=== PATIENT | male | born 1945 | race Caucasian/White ===

== ENCOUNTER → 2021-06-06 | Outpatient (CLI) | payer MEDICARE, BC ==
[~2021-06-06] MED LIST: ACETAMINOPHEN650 M5 PO; ASMANEX220 MC1 INH; ASPIR 8181 MG PO; ASPIRIN325 PO; ATORVASTATIN CA40 MG PO; AZELASTINE HCL6 ML; CARVEDILOL3.125 MG PO; CLOPIDOGREL; CRESTOR10 MG PO; DUREZOL5 ML; EFFIENT10 MG PO; FISH OIL + VIT1 EACH PO; FLONASE 0.05%50 MCG NASAL; FLOVENT HFA 1110 MCG INH; HYDROCHLOROTH12.5 MG PO; HYDROCHLOROTHIA25 M2 PO; LEVOTHYROXIN0.125 M1 PO; MOTION RELIEF25 MG PO; MUCINEX22 ML; MULTI-VITAMIN1 EAC5 PO; NASAL MIST126 ML; NITROSTAT0.4 MG SL; PLAVIX 75 MG TA75 M1 PO; PLAVIX 75 MG TA75 MG PO; PRINIVIL5 MG PO; PROTONIX40 M1 PO; SYMBICORT160 MCG/4. IH; THROAT LOZENGE1 EACH PO; VITAMIN D400 UNI1 PO; ZETIA10 MG PO; ZOFRAN ODT4 MG PO; [UNRECOGNIZED DRUG - OTHER]; [UNRECOGNIZED DRUG - OTHER]
== END ==
LOC: M.RAD 11:00
PROVIDERS: ATTEND Nurse Practitioner Family
DX: R13.10 Dysphagia, unspecified (principal)